=== PATIENT | female | born 1965 | race Caucasian/White ===

== ENCOUNTER 2024-04-29 11:24 | Observation (INO) | payer OTHER ==
[~2024-04-29] VITALS: Ht 162.6 cm; Wt 116.7 kg
[2024-04-29 12:14] VITALS: TEMP 98.1
[2024-04-29 12:53] LABS: BASOPHILS % 0.2 % (0.0-1.0); EOSINOPHILS # (AUTO) 0.1 (0.0-0.4); EOSINOPHILS % 0.9 % (0.0-6.0); HEMATOCRIT 33.8 % (34.2-44.1); HEMOGLOBIN 9.4 g/dL (12.0-16.0); LYMPHOCYTES # (AUTO) 2.1 (1.0-3.2); MEAN CORPUSCULAR HEMOGLOBIN 18.8 pg (28-32); MEAN CORPUSCULAR HGB CONC 27.8 g/dL (31-35); MEAN CORPUSCULAR VOLUME 67.6 fL (81-99); MONOCYTES # (AUTO) 0.6 (0.2-0.8); MONOCYTES % 6.4 % (4.4-11.3); NEUTROPHILS # (AUTO) 7.1 (2.1-6.9); NEUTROPHILS % 71.1 % (38.7-80.0); PLATELET COUNT 277 x10e3/uL (140-360); RED CELL DISTRIBUTION WIDTH 22.7 % (11.7-14.4); WHITE BLOOD COUNT 10.03 x10e3/uL (4.8-10.8)
[2024-04-29 13:15] LABS: ALBUMIN 3.7 g/dL (3.5-5.0); ALBUMIN/GLOBULIN RATIO 0.9 (0.8-2.0); ANION GAP 15.1 mmol/L (8-16); BILIRUBIN,TOTAL 0.4 mg/dL (0.2-1.2); CALCIUM 9.8 mg/dL (8.4-10.2); CREATININE, SERUM 0.77 mg/dL (0.57-1.11); POTASSIUM 4.1 mmol/L (3.5-5.1); TOTAL PROTEIN 7.9 g/dL (6.5-8.1)
[2024-04-29 14:20] LABS: INR 0.87; PARTIAL THROMBOPLASTIN TIME 28.6 seconds (23.8-35.5); PROTHROMBIN TIME 12.3 seconds (11.9-14.5)
[2024-04-29] MEDS ORDERED: ONDANSETRON HCL INJ 2MG/ML 2ML 2 MG/ML VIAL IV PRN (14:30)
[2024-04-29] MEDS ORDERED: SODIUM CHLORIDE FLUSH 10 ML SYR INJ PRN (14:30)
[2024-04-29 16:15] VITALS: PULSE 74; RESP 17
[2024-04-29 18:06] VITALS: BP 147/83; PULSE 74; RESP 18; O2SAT 100
[2024-04-29 19:47] LABS: APPEARANCE,CSF CLEAR (CLEAR); COLOR,CSF BROWN (COLORLESS); TUBE NUMBER 3
[2024-04-29 19:49] LABS: RED BLOOD CELL,CSF 0 cells/uL (0-10); WHITE BLOOD CELL,CSF 3 cells/uL (0-5)
[2024-04-29] MEDS ORDERED: LANTUS 3ML100 UNITS/ SQ (19:51)
[2024-04-29] MEDS ORDERED: VITAMIN D31250 MCG PO (19:51)
[2024-04-29] MEDS ORDERED: ROSUVASTATIN CA20 MG PO (19:51)
[2024-04-29] MEDS ORDERED: METFORMIN HCL500 MG PO (19:51)
[2024-04-29] MEDS ORDERED: LOSARTAN POTASS25 MG PO (19:51)
[2024-04-29 20:00] VITALS: BP 151/75; PULSE 80; RESP 18; TEMP 98.1; O2SAT 99
[2024-04-30] VITALS (7 sets, daily range): BP systolic 125–144; BP diastolic 68–93; PULSE 78–84; RESP 16–20; TEMP 97.6–98.3; O2SAT 97–100
[2024-04-30 07:11] LABS: BASOPHILS % 0.6 % (0.0-1.0); EOSINOPHILS # (AUTO) 0.1 (0.0-0.4); EOSINOPHILS % 1.4 % (0.0-6.0); HEMATOCRIT 31.7 % (34.2-44.1); HEMOGLOBIN 8.9 g/dL (12.0-16.0); LYMPHOCYTES # (AUTO) 1.9 (1.0-3.2); LYMPHOCYTES % 25.9 % (18.0-39.1); MEAN CORPUSCULAR HEMOGLOBIN 18.9 pg (28-32); MEAN CORPUSCULAR HGB CONC 28.1 g/dL (31-35); MEAN CORPUSCULAR VOLUME 67.4 fL (81-99); MONOCYTES # (AUTO) 0.6 (0.2-0.8); MONOCYTES % 8.5 % (4.4-11.3); NEUTROPHILS # (AUTO) 4.6 (2.1-6.9); NEUTROPHILS % 63.5 % (38.7-80.0); PLATELET COUNT 254 x10e3/uL (140-360); RED CELL DISTRIBUTION WIDTH 22.4 % (11.7-14.4); WHITE BLOOD COUNT 7.27 x10e3/uL (4.8-10.8)
[2024-04-30 07:42] LABS: ALBUMIN 3.3 g/dL (3.5-5.0); ALBUMIN/GLOBULIN RATIO 0.9 (0.8-2.0); ANION GAP 14.1 mmol/L (8-16); BILIRUBIN,TOTAL 0.4 mg/dL (0.2-1.2); CALCIUM 9.3 mg/dL (8.4-10.2); CREATININE, SERUM 0.75 mg/dL (0.57-1.11); POTASSIUM 4.1 mmol/L (3.5-5.1); TOTAL PROTEIN 7.1 g/dL (6.5-8.1)
[2024-04-30] MEDS: ACETAMINOPHEN 325 MG TAB PO PRN (11:09)
[2024-04-30] MEDS: SODIUM CHLORIDE 0.9% IV SCH (17:44)
[2024-04-30] MEDS: PENICILLIN POTASSIUM IV SCH (17:44)
[2024-05-01] VITALS (8 sets, daily range): BP systolic 120–142; BP diastolic 68–80; PULSE 76–96; RESP 18–19; TEMP 97.3–98.2; O2SAT 96–100
[2024-05-01] MEDS: HYDROCODONE/APAP 5MG-325MG TAB PO PRN (12:16)
[2024-05-02] VITALS (9 sets, daily range): BP systolic 121–152; BP diastolic 66–88; PULSE 70–84; RESP 18; TEMP 97.5–98.6; O2SAT 96–100
[2024-05-02] MEDS ORDERED: SODIUM CHLORIDE 0.9% 1000ML 1,000 ML ONE (08:02)
[2024-05-02] MEDS: Morphine 2mg Syringe 2 MG/ML SYR IV PRN (15:08)
[2024-05-02] MEDS ORDERED: ONDANSETRON HCL 4 MG ORAL DISINTEGRATING TAB PO PRN (17:45)
[2024-05-03 03:37] VITALS: BP 151/82; PULSE 80; RESP 18; TEMP 97.9; O2SAT 97
[2024-05-03 09:09] VITALS: BP 141/86; PULSE 83; RESP 18; TEMP 98.1; O2SAT 100
[2024-05-03 11:16] VITALS: BP 141/86; PULSE 83; RESP 18; TEMP 98.1; O2SAT 100
[2024-05-03 19:53] LABS: RAPID PLASMA REAGIN Reactive
[2024-05-03 19:54] LABS: FTA-ABS Reactive
== END 2024-05-03 13:45 | disposition home health service (06) ==
LOC: ER 11:34 → ERHOLD 14:32 → MED/SURG3 17:06
PROVIDERS: ADMIT Internal Medicine; ATTEND Internal Medicine
DX: A52.3 Neurosyphilis, unspecified (principal); I10 Essential (primary) hypertension; E11.9 Type 2 diabetes mellitus without complications; E78.5 Hyperlipidemia, unspecified; D64.9 Anemia, unspecified; R21 Rash and other nonspecific skin eruption; Z79.4 Long term (current) use of insulin
CPT/HCPCS: 36415 ×5; 36569; 62328; 71045; 74470; 80053 ×2; 82945; 82948 ×5; 84157; 85025 ×2; 85610; 85730; 86592 ×2; 89051; 99284; G0378 ×5; J2270; J2405; J2540 ×3; J7030 ×3